=== PATIENT | female | born 1970 | race Caucasian/White ===

== ENCOUNTER 2016-05-11 12:59 | Emergency (ER) | payer OTHER ==
[2016-05-11 15:04] LABS: HEMOGLOBIN 12.8 gm/dl (12.3-15.3); RED BLOOD COUNT 4.06 M/UL (4.00-5.10); WHITE BLOOD COUNT 7.4 K/UL (4.5-11.0)
[2016-05-11 15:24] LABS: BUN/CREATININE RATIO 16 (0-10)
== END 2016-05-11 17:55 | disposition home or self-care (01) ==
LOC: ER1 12:59
PROVIDERS: Family Medicine
DX: R07.9 Chest pain, unspecified (principal); G89.29 Other chronic pain; M54.9 Dorsalgia, unspecified; F17.200 Nicotine dependence, unspecified, uncomplicated; Z88.2 Allergy status to sulfonamides; Z79.891 Long term (current) use of opiate analgesic; Z79.899 Other long term (current) drug therapy
CPT/HCPCS: 36415; 71010; 80053; 82550; 82553; 83874; 84484; 85025; 93005; 99285

== ENCOUNTER 2020-12-24 17:35 | Observation (INO) | payer OTHER ==
[~2020-12-24] VITALS: Ht 167.6 cm; Wt 72.1 kg
[~2020-12-24 17:35] MED LIST: FLEXERIL 10 MG10 MG PO; PREDNISONE 50 M50 MG PO; Voltaren Gel 1% TOP
[2020-12-24 18:56] LABS: HEMOGLOBIN 13.6 gm/dl (12.3-15.3); RED BLOOD COUNT 4.09 M/UL (4.00-5.10); WHITE BLOOD COUNT 9.4 K/UL (4.5-11.0)
[2020-12-24 19:26] LABS: BUN/CREATININE RATIO 27 (0-10)
[2020-12-24] MEDS ORDERED: AMLODIPINE BESY10 MG PO (23:01)
[2020-12-24] MEDS ORDERED: LORATADINE10 MG PO (23:02)
[2020-12-24] MEDS ORDERED: VAZALORE81 MG PO (23:06)
[2020-12-24] MEDS ORDERED: THALITONE15 MG PO (23:06)
[2020-12-24] MEDS ORDERED: PRILOSEC OTC20 MG PO (23:07)
[2020-12-24] MEDS ORDERED: METHADONE HCL40 MG PO (23:08)
[2020-12-24] MEDS ORDERED: NEURONTIN400 MG PO (23:09)
[2020-12-25 03:03] LABS: HEMOGLOBIN 12.3 gm/dl (12.3-15.3); RED BLOOD COUNT 3.81 M/UL (4.00-5.10); WHITE BLOOD COUNT 7.3 K/UL (4.5-11.0)
--- NOTE | 2020-12-25 07:11 | NUR ---
PT ASKED TO HAVE IV REMOVED DUE TO WANTING TO LEAVE AMA, DR MEDRANO AWARE SHE SAID SHE WAS UPSET BECAUSE HER MEDICATIONS WERE NOT REORDERED DR MEDRANO OFFERED TO DO SO IMMEDIATELY, SHE SAID SHE ALSO WAS UPSET BECAUSE SHE WAS TOLD HER ECHO AND ALL HER TESTING WOULD BE DONE IN THE NIGHT. I ATTEMPTED TO EXPLAIN THE PROCESS SHE WAS NOT INTERESTED SHE SAID SHE WOULD FOLLOW UP WITH HER PRIMARY TODAY. IV WAS REMOVED AND PT WITH HER WALKED OFF UNIT.
== END 2020-12-25 07:10 | disposition left against medical advice (07) ==
LOC: ER1 17:35 → MED SURG 4 21:26 → CDU 21:26 → MED SURG 4 22:40
PROVIDERS: Nurse Practitioner; ADMIT Internal Medicine
DX: R07.89 Other chest pain (principal); I10 Essential (primary) hypertension; G62.9 Polyneuropathy, unspecified; E87.6 Hypokalemia; F17.210 Nicotine dependence, cigarettes, uncomplicated; K21.9 Gastro-esophageal reflux disease without esophagitis; E66.9 Obesity, unspecified; Z68.25 Body mass index [BMI] 25.0-25.9, adult; Z20.822 Contact with and (suspected) exposure to COVID-19; Z88.8 Allergy status to other drugs, medicaments and biological substances; Z88.2 Allergy status to sulfonamides; Z53.29 Procedure and treatment not carried out because of patient's decision for other reasons; Z79.899 Other long term (current) drug therapy
CPT/HCPCS: 36415; 71045; 80053; 80061; 80307; 81001; 82550; 82553; 82728; 83036; 83735; 83874; 83880; 84100; 84439; 84443; 84484; 84550; 85025; 85379; 85610; 86140; 93005; 99285; G0378; U0002

== ENCOUNTER → 2021-11-16 | Outpatient (CLI) | payer OTHER ==
[~2021-11-16] MED LIST changes: +AMLODIPINE BESY10 MG PO; +LORATADINE10 MG PO; +METHADONE HCL40 MG PO; +NEURONTIN400 MG PO; +PRILOSEC OTC20 MG PO; +THALITONE15 MG PO; +VAZALORE81 MG PO
== END ==
LOC: KOH-I 15:15
DX: M25.572 Pain in left ankle and joints of left foot (principal); M25.571 Pain in right ankle and joints of right foot
CPT/HCPCS: 73610; 73630